=== PATIENT | female | born 1985 | race Caucasian/White ===

== ENCOUNTER 2021-06-01 07:32 | Emergency (ER) | payer MEDICAID, SELFPAY ==
[2021-06-01 07:34] VITALS: BP 108/73; PULSE 62; RESP 16; TEMP 37.1; O2SAT 97; BMI 24.3
--- NOTE | 2021-06-01 08:33 | EX.ED.DYSGE1 ---
HPI History of Present Illness Chief Complaint: Other, Pain/Inj Detail of Chief Complaint: Right lateral neck pain. Informant: patient and spouse/S.O. Onset/Context/Timing Onset: Today Context: Gradual Onset Timing: Continuous Current Severity: Gone Maximum Severity: Mild Narrative Narrative: 35-year-old female no seen past medical history currently on no medications. Around 4 AM this morning had some right-sided neck pain. Denies any fall or trauma. No fever. went and got her something for the discomfort. She then sat up and had a near syncopal episode. He called the squad. She denies any nausea vomiting diarrhea. No fever or headache. Actually neck pain is much better now. Denies ever having anything like this before. Denies recent illness or hospitalization. Prior similar symptoms: No Recent Illness/Hospitalization: No PFSH PFSH Medical History no medical history no medical history Home Medications metaxalone [Skelaxin] 800 mg PO TID PRN #20 tab 06/01/21 [Rx Last Taken Unknown] Surgical History no surgical history Social History Smoking Status: Never smoker ROS ROS ED ROS Narrative No recent illness. Review of Systems ROS Unobtainable: Denies due to encephalopathy Constitutional Constitutional ED: Denies fever(s) Eyes Eyes: Denies change in vision ENT ENT ED: Denies ear pain, rhinorrhea or sore throat Cardiovascular Cardiovascular: Denies chest pain Respiratory/Chest Respiratory/Chest: Denies cough or dyspnea Gastrointestinal Gastrointestinal: Denies abdominal pain, diarrhea, nausea or vomiting Genitourinary Genitourinary ED: Denies dysuria Musculoskeletal Musculoskeletal: Reports neck pain; Denies myalgias Integumentary Denies rash Neurologic Neurologic: Denies headache(s) Psychiatric Psychiatric: Denies depression Endocrine Endocrinology: Denies polyuria Allergic/Immunologic Allergic/Immunologic ED: Denies urticaria EXAM Physical Exam Narrative Exam Narrative: Well-appearing 35-year-old female. Vital signs stable afebrile. H EENT exam unremarkable. Pupils are reactive light moist with membranes. No facial droop no trauma. Scalp nontender. Neck currently nontender. Trachea midline. No lymphadenopathy. No muscle tenderness or spasms. No C-spine discomfort. Normal range of motion. Lungs clear to auscultation bilaterally. Heart regular rhythm no murmur. Abdomen soft nontender normal bowel sounds no peritoneal signs. Patient moving all 4 extremities. Neurovascular intact. 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 Normal dorsi plantar flexion. No edema. Back nontender. Neurologically awake alert no focal motor deficits. NIH is 0. Const Vital Signs: 06/01/21 07:34 06/01/21 09:56 06/01/21 12:28 Temperature 98.7 F 98.7 F Temperature Source Temporal Temporal Pulse Rate 62 65 53 L Respiratory Rate 16 16 Blood Pressure 108/73 118/78 98/64 Blood Pressure Mean 84 91 75 Pulse Ox 97 97 Oxygen Delivery Method Room Air Room Air Positive well nourished and well developed; Negative for obese, cachectic, contractures or unkempt General Appearance ED: well developed and NAD; Negative for unkempt, cachectic, contractures, cyanotic, diaphoretic or pallor Nutritional Appearance: Negative for cachectic or obese HEENT Reports moist mucous membranes Negative for trauma or tenderness Eyes PERRL and EOMs intact bilaterally General Eye ED: Negative for pale conjunctiva or scleral icterus Neck no lymphadenopathy, supple and no JVD General: Negative for tenderness Chest Wall inspection of chest normal and palpation of chest normal Resp normal respiratory effort and clear to auscultation bilaterally Effort and Inspection: Negative for pain with movement Auscultation: Negative for rales, rhonchi or wheezes Cardio regular rate, regular rhythm, S1 normal heart sound, S2 normal heart sound and no murmurs Palpation: Negative for palpable S3 GI normal to inspection, nondistended, normoactive bowel sounds, non-tender, non-distended and no masses Inspection: Negative for abdominal distention Auscultation: normoactive bowel sounds Palpation: soft; Negative for tender, guarding or rebound tenderness present Back/Spine no CVA tenderness General Back: Negative for CVA tenderness Cervical Spine: Negative for cervical spine tenderness Thoracic Spine / Upper Back: Negative for thoracic spinal tenderness or paraspinal muscle tenderness Lumbar Spine / Lower Back: Negative for lumbar spinal tenderness Extremity normal to inspection General Extremety ED: Negative for edema or tenderness General Extremity: Negative for edema Neuro oriented x3 and CN's II-XII intact bilaterally Sensorium / Orientation: alert; Negative for lethargic or stuporous Motor Exam: strength 5/5 throughout Psych mental status grossly normal Appearance: Negative for unkempt Attitude: No agitated Mood & Affect: Negative for depressed, anxious or tearful Skin no rashes or lesions noted and no wounds General Skin Exam: Negative for jaundice or pallor MDM MDM MDM Narrative Medical decision making narrative: 35-year-old female with reported right-sided neck pain which is since resolved. Had a near syncopal episode. Exam is benign. Screening labs and EKG will be obtained. Repeat exam at 1 PM patient is doing well. Exam benign. She states her blood pressure often runs low between 90 and 100. We went over her test results. She will be discharged home with outpatient follow-up. Lab Data Attestation: I reviewed the patient's lab results. Lab results narrative: CBC shows a white count of 5. H&H 11.7 and 35. Platelets normal. Electrolytes unremarkable gap of 4 normal BUN and creatinine. Normal glucose of 19. No old labs available for comparison. Labs: Laboratory Results - last 24 hr 06/01/21 06/01/21 09:05 09:05 WBC 5.3 RBC 3.80 L Hgb 11.7 L Hct 35.1 L MCV 92.4 MCH 30.8 MCHC 33.3 RDW Std Deviation 41.9 RDW Coeff of Cristino 12.3 Plt Count 216 MPV 10.7 Immature Gran % (Auto) 0.200 Neut % (Auto) 80.8 H Lymph % (Auto) 13.3 L Collier % (Auto) 4.3 Eos % (Auto) 0.8 Baso % (Auto) 0.6 Absolute Neuts (auto) 4.3 Absolute Lymphs (auto) 0.71 L Nucleated RBC % 0 Sodium 141 Potassium 3.8 Chloride 110 H Carbon Dioxide 27.0 Anion Gap 4 L BUN 14 Creatinine 0.79 Estim Creat Clear Calc 84.19 Est GFR (MDRD) Af Amer 104 Est GFR (MDRD) Non-Af 86 BUN/Creatinine Ratio 17.7 Glucose 99 Calcium 8.6 Rhythm Strip Rhythm Strip: Sinus Rhythm Rate: 56 Ectopy: None EKG Initial EKG: Attestation: I personally reviewed and interpreted this EKG as follows: Interpretation: Sinus Bradycardia Comments: Sinus bradycardia rate of 56 no acute signs of NE or ischemia. No old EKG available comparison. Discharge Plan Triage Chief Complaint: Other, Pain/Inj ED Provider: James Jarrett Dx/Rx/DC Orders Clinical Impression: Acute neck pain Prescriptions: New metaxalone [Skelaxin] 800 mg tablet 800 mg PO TID PRN (Reason: muscle pain) Qty: 20 RF: 0 Primary Care Provider: Care Physician,No Primary Referrals: Shay Nieves MD [STAFF PHYSICIAN] - 3-5 Days Care Physician,No Primary [Primary Care Provider] - Activity Restrictions/Additional Instructions: Neck pain is probably from muscle spasm. Hot shower and warm bath. Massage. Motrin for pain and inflammation. If it is not improving you can fill and start taking the Skelaxin which is a muscle relaxant but I would not start at this time unless needed. Your labs were unremarkable other than being just below normal and mildly anemic. Follow-up with a local primary care physician to ensure you are improving. Disposition Disposition: Home, Self Care
--- NOTE | 2021-06-01 08:37 | EKG12_ITS ---
Test Reason : SYNCOPE Blood Pressure : / mmHG Vent. Rate : 056 BPM Atrial Rate : 056 BPM P-R Int : 152 ms QRS Dur : 080 ms QT Int : 418 ms P-R-T Axes : 076 090 080 degrees QTc Int : 403 ms Sinus bradycardia Nonspecific T wave abnormality Abnormal ECG Confirmed by KELLI RODAS, MICHAEL ([id number]), sound editor KHADRA FIGUEROA ([id number]) on 06/03/2021 11:31:19 AM Referred By: BRIAN Confirmed By:MICHAEL PEREIRA MD
[2021-06-01 09:13] LABS: Absolute Lymphocyte Count 0.71 X10^3/uL (0.83-4.51); Absolute Neutrophil Count 4.3 X10^3/uL (2.0-7.7); Basophil# 0.03 X10^3/uL; Basophil% 0.6 % (0-1); Eosinophil# 0.04 X10^3/uL; Eosinophils% 0.8 % (0-5); Hematocrit 35.1 % (37-47); Hemoglobin 11.7 g/dL (12.0-15.0); Lymphocyte # 0.71 X10^3/ul (0.83-4.51); Lymphocyte % 13.3 % (19-41); Mean Corp Hgb Conc 33.3 g/dL (32-36); Mean Corpuscular Hgb 30.8 pg (27.0-32.0); Mean Corpuscular Volume 92.4 fL (81-99); Mean Platelet Vol. 10.7 fl (6.2-12.0); Monocyte# 0.23 X10^3/uL; Monocyte% 4.3 % (0-10); NRBC Flagged by Analyzer 0 % (0-5); Neutrophil % 80.8 % (47-70); Platelet Count 216 K/mm3 (150-450); RBC Distribution Width CV 12.3 % (11.6-14.6); RBC Distribution Width SD 41.9 fl (35.1-43.9); White Blood Count 5.3 K/mm3 (4.4-11.0)
[2021-06-01 09:27] LABS: Anion Gap 4 (5-15); BUN 14 mg/dL (7-18); BUN/Creat Ratio 17.7 RATIO (10-20); Calcium,Total 8.6 mg/dL (8.5-10.1); Chloride 110 mmol/L (98-107); Creatinine, Serum 0.79 mg/dL (0.55-1.02); EST Glomerular Filtration Rate 86 mL/min (>60); Est Glom Filt Rate - Afr Amer 104 mL/min (>60); Estimated Creatinine Clearance 84.19 ml/min; Glucose 99 mg/dL (74-106); Potassium 3.8 mmol/L (3.5-5.1); Sodium Level 141 mmol/L (136-145)
[2021-06-01 09:56] VITALS: BP 118/78; PULSE 65; RESP 16; TEMP 37.1; O2SAT 97
[2021-06-01 12:28] VITALS: BP 98/64; PULSE 53
[2021-06-01 13:24] VITALS: BP 98/65
== END 2021-06-01 13:24 | disposition home or self-care (01) ==
PROVIDERS: Emergency Provider Emergency Medicine; Visit Provider Emergency Medicine
DX: M54.2 Cervicalgia (principal); R55 Syncope and collapse
CPT/HCPCS: 80048; 85025; 93005; 99285; A4216